=== PATIENT | male | born 1960 | race Two or more races ===

== ENCOUNTER → 2025-03-15 | Outpatient (CLI) | payer OTHER, SELFPAY ==
--- NOTE | 2025-03-15 10:01 | XR_ITS ---
Examination: Lumbar spine, 5 views Technique: Lumbar spine AP, lateral, coned lateral lower lumbar spine, bilateral obliques 5 views Exam date and time: March 15, 2025 1014 hours INDICATIONS: Low back pain beginning one month ago. FINDINGS: Grade 1 anterolisthesis L5 on S1 No lumbar fracture Prominent lumbar spondylosis Mild to moderate diffuse lumbar degenerative disc disease most prominent at L5-S1 IMPRESSION: Mild to moderate lumbar degenerative disc disease most prominent at L5-S1
--- NOTE | 2025-03-15 10:01 | XR_ITS ---
Examination: PA lateral chest 2 views TECHNIQUE: Upright PA lateral chest 2 views Exam date and time: March 15, 2025 1019 hours INDICATIONS: Coughing beginning one month ago. FINDINGS: Normal heart size Lungs are clear. The osseous structures are intact IMPRESSION: No active disease
[2025-03-15 11:30] LABS: Glucose Estimated Average 143 mg/dL (80-131); Hemoglobin A1C 6.6 % Hgb (4.8-6.0)
== END | disposition home or self-care (01) ==
LOC: CDIM 09:27 → COPL 10:32
PROVIDERS: PCP Family Medicine; Referring Provider Family Medicine; Visit Provider Radiology Diagnostic Radiology
DX: M51.379 Other intervertebral disc degeneration, lumbosacral region without mention of lumbar back pain or lower extremity pain (principal); R05.3 Chronic cough; E11.9 Type 2 diabetes mellitus without complications
CPT/HCPCS: 36415; 71046; 72110; 83036